=== PATIENT | male | born 1940 | race Caucasian/White ===

== ENCOUNTER 2016-09-18 20:54 | Emergency (ER) | payer MEDICARE ==
[~2016-09-18] VITALS: Ht 175.3 cm; Wt 67.3 kg
[~2016-09-18 20:54] MED LIST: AMLO-39 PO; CLOP75TA3 PO; CREST10T PO; MELO7.5T13 PO; METO-272 PO
[2016-09-18 21:14] VITALS: BP 105/55; PULSE 65; RESP 15; O2SAT 97
[2016-09-18] MEDS ORDERED: 0.9% Sodium Chloride 1,000 ML IV ONE (21:19)
--- NOTE | 2016-09-18 21:19 | ED.REPORT ---
HPI-Abd Pain M 40 and Over Date of Service Sep 18, 2016 ED Provider: Dr. Patel Pt is a 76 y/o male w/ a hx of prostate CA, HTN, hyperlipidemia, CVA, presenting to the ED via EMS due to GLF which occurred prior to arrival. The patient experienced several episodes of nausea, vomiting, and diarrhea several days ago with associated lightheadedness and diazines. Recent BMs have been normal. He was walking down the torres of his house when his feet became entangled with a rug that the dogs were not lying on. He fell backwards. It is hard to see if he struck his head. He did have a bout of emesis after falling. He does know that he struck his right posterior thoracic cage on a desk. He now has right posterior thoracic pain. Fell backwards with his right lower ribs onto a wooden desk. After his fall today, he began vomiting again. His fall is causing him some right posterior lower rib pain. He denies BURRELL, change in LOC, CP, syncope, SOB, abdominal pain, head injury, neck pain, fever, chills. Nursing Notes Stated Complaint: GLF,NAUSEA,VOMITING Chief Complaint: Male Abdominal Pain Nursing Notes Reviewed: Yes Allergies: Coded Allergies: No Known Allergies (Unverified Allergy, Unknown, 09/18/16) Scheduled AmLODIPine-Expunged Drug, Do Not Renew! (AmLODIPine-Expunged Drug, Do Not Renew! ) 5 Mg Tablet 5 MG PO DAILY Clopidogrel Bisulfate (Plavix) 75 Mg Tablet 75 MG PO DAILY Metoprolol Succinate ER (Metoprolol Succinate ER) 50 Mg Tab.er.24h 50 MG PO DAILY Rosuvastatin-Expunged Drug, Do Not Renew! (Crestor-Expunged Drug, Do Not Renew! ) 10 Mg Tablet 20 MG PO DAILY Scheduled PRN Meloxicam-Expunged Drug, Do Not Renew! (Mobic-Expunged Drug, Do Not Renew!) 7.5 Mg Tablet 7.5 MG PO BID PRN PRN For Pain General Time Seen by MD: 21:18 Chief Complaint Other (Fall) Hx Obtained From: Patient, EMS Arrived By: Ambulance Sudden in Onset?: Yes Onset Occurred: Just prior to arrival Symptom Duration: Since onset Progression since Onset: Unchanged Location: : Flank right Quality: Painful Severity: Current: Mild Severity: Maximum: Mild Past Medical History Past Medical History 1. Prostate cancer, Bates 7, T3b NX M0, stage III. a. Completed a course of definitive irradiation to the pelvis and prostate on April 28, 2007. b. On hormonal management. 2. Hypertension. 3. Hyperlipidemia. 4. Stroke - 5 years ago Past Surgical History Left hernia surgery Shoulder surgery Family History His father at age 86 due to heart disease. His mother at age 78 due to heart disease. Smoking History Unknown if Ever Smoker Social History The patient chews tobacco regularly Alcohol Use: Denies alcohol use Drug Use: Denies drug use Other Social History: Good social support, Local resident Ambulatory Status Independent Review of Systems Constitutional: Denies: Chills, Fever Respiratory: Denies: Non-productive cough, Shortness of breath Cardiovascular: Denies: Chest pain, Dyspnea on exertion, Syncope GI: Reports: Diarrhea, Nausea, Vomiting, Denies: Abdominal pain Musculoskeletal: Reports: Back pain, Denies: Neck pain Complete sys rev & neg: except as marked. Neurologic: Reports: Dizziness, Lightheaded, Denies: Change LOC, Headache, Syncope Physical Exam Initial Vital Signs Vital Signs (First) Date Time Temp Pulse Resp B/P Pulse Ox O2 Delivery O2 Flow Rate FiO2 09/18/16 21:14 37.0 65 15 105/55 97 Room Air Initial VS: Reviewed, Vital signs normal Head / Eyes: Atraumatic, Normocephalic, PERRL Neck: Supple, Full range of motion Extremities: Vascular intact, Neuro intact, No swelling, No tenderness Skin: Warm, Dry, No cyanosis Neurologic: Alert, Oriented, Nonfocal Psychiatric: Mood/affect normal, Behavior normal, Normal thought content Respiratory / Chest: Atraumatic, Breath sounds NL, Breath sounds = bilat, No respiratory distress, No rales, No rhonchi, No wheezing, No retractions, No stridor, No chest wall deformity, No crepitus Cardiovascular: Heart rate NL, Regular rhythm, Heart sounds NL, No gallop, No murmurs, No rubs, Cap refill not delayed, Peripheral circulation NL Abdomen: Atraumatic, Soft, Non-tender, No guarding, No rebound, No distention, No palpable mass Back: Full range of motion Right lower posterior ribs tender, ecchymotic, and swollen ENT: Atraumatic, Airway patent Mouth: Positive: Mucous membranes dry Interpretation & Diagnostics Lab Results Interpretation Result Diagram: 09/18/16211109/[id number]/162111 Test 09/18/16 21:12 09/18/16 21:40 09/18/16 23:30 09/18/16 23:58 White Blood Count 7.2th/mm3 (3.8-10.1) Red Blood Count 4.29mil/mm3 (4.40-5.80) Hemoglobin 12.5g/dL (13.8-17.2) Hematocrit 38.9% (41.0-50.0) Mean Corpuscular Volume 90.7fL (81-100) Mean Corpuscular Hemoglobin 29.1pg (27.0-35.0) Mean Corpuscular Hemoglobin Concent 32.1% (32.0-37.0) Red Cell Distribution Width 14.6% (12.3-15.4) Platelet Count 261bil/L (150-400) Neutrophils (%) (Auto) 67.8% (40-74) Lymphocytes (%) (Auto) 16.2% (14-46) Monocytes (%) (Auto) 11.0% (4-12) Eosinophils (%) (Auto) 3.7% (0-5) Basophils (%) (Auto) 0.6% (0-3) Hold Purple Top Tube Received (Received) Prothrombin Time 10.7sec (8.1-12.5) Prothromb Time International Ratio 1.00ratio Hold Blue Top Tube Received (Received) Sodium Level 134mEq/L (134-144) Potassium Level 4.4mEq/L (3.5-5.2) Chloride Level 96mEq/L (97-108) Carbon Dioxide Level 21mmol/L (18-29) Blood Urea Nitrogen 18mg/dL (8-27) Creatinine 1.01mg/dL (0.76-1.27) Estimat Glomerular Filtration Rate 76mL/min (>59) Glucose Level 197mg/dL (60-99) Calcium Level 9.0mg/dL (8.5-10.1) Magnesium Level 1.9mg/dL (1.6-2.6) Total Bilirubin 0.5mg/dL (0.0-1.2) Aspartate Amino Transf (AST/SGOT) 31U/L (0-50) Alanine Aminotransferase (ALT/SGPT) 24U/L (0-44) Alkaline Phosphatase 100U/L (25-160) Total Protein 7.6g/dL (6.4-8.4) Albumin 3.9g/dL (3.4-5.0) Lipase 36U/L (13-60) Hold Red Top Tube Received (Received) Hold [place] Top Tube Received (Received) Lactic Acid Level 0.9mmol/L (0.4-2.0) Urine Color Yellow (YELLOW) Urine Appearance Clear (CLEAR,HAZY) Urine pH 6.0 (5.0-8.0) Urine Specific [place] 1.020 (1.003-1.035) Urine Protein Negativemg/dL (NEG,TRACE) Urine Glucose (UA) Negativemg/dL (NEGATIVE) Urine Ketones Tracemg/dL (NEGATIVE) Urine Occult Blood Trace (NEGATIVE) Urine Nitrite Negative (NEGATIVE) Urine Bilirubin Negative (NEGATIVE) Urine Urobilinogen Normalmg/dL (NORMAL) Urine Leukocyte Esterase Negative (NEGATIVE) Urine RBC 0-2/hpf (0-2) Urine WBC 0-5/hpf (0-5) Urine Epithelial Cells Few/hpf (NONE-MOD) Urine Crystals None seen (NONE SEEN) Urine Bacteria Few/hpf (NONE-FEW) Urine Hyaline Casts 5/20/lpf (NONE) Urine Granular Casts None seen (NONE SEEN) Urine Waxy Casts None seen (NONE SEEN) Urine Red Blood Cell Casts None seen (NONE SEEN) Urine White Blood Cell Casts None seen (NONE SEEN) Urine Mucus Present (None Seen) Urine Trichomonas None seen (NONE SEEN) Urine Yeast None (NONE SEEN) Urinalysis Comment None Urine Culture Reflexed Not indicated Troponin T < 0.010ug/L (0.0-0.011) ECG Interpretation ECG Interpretation: Sinus rhythm rate 65 Borderline prolonged IA interval Time: 21:43 Interpreted by: ED physician Normal ECG Interpretation: No acute ischemic changes, No change from prior ECGs X-Ray Chest Interpretation View: Portable, 1 view Interpretation / Wet Read by: Wet read ED physician NL X-Ray Chest Findings: No infiltrate, No acute disease X-Ray Interpretation Study Performed: L spine Interpretation / Wet Read by: Wet read ED physician Interpretation: Normal exam, No fracture/dislocation Study Performed: T spine Interpretation / Wet Read by: Wet read ED physician Interpretation: Normal exam, No fracture/dislocation CT Head Interpretation Conclusion: Chronic ischemic changes. - Danish Cary MD Study: Head CT no contrast Interpretation / Wet Read by: Interpret - Radiologist Re-Eval/Medical Decision Med Decision/Clinical Course SC ruled out with serial troponins. History and physical are not consistent with SC either. This was a mechanical fall leading to chest contusion. Hard to say exactly why he vomited. Could be related pain or perhaps he did not strike his head. Either way's head CT was normal. Chest CT did not show pulmonary emboli dissection or pneumothorax. Serial troponins are negative. He looks and feels great. His labs are reassuring. He would like to go home. I find no indication for admission. There was no syncope or presyncope. There was no loss of consciousness. No chest symptoms whatsoever aside from the rib pain. He has obvious bruising of his posterior thorax. I will discharge him home with [place] take home pack. His family will administer one every 6 hours with routine follow-up opiate precautions. They will also start him on some MiraLAX to prevent constipation. Recommend follow-up next week. Yuan has done great. The CAT scan does show some rib fractures and dilated aorta. Otherwise no acute pathology. He has been here 6 hours and feels ready to go home. No vomiting, he does have rib pain of course but otherwise no other symptoms. Family is comfortable taking him home. He is hemodynamically stable. Time of Eval: 00:47 Re-Evaluation/Progress Note: Pt rechecked. Informed pt of plan for treatment. Pt understands and agrees with plan for treatment. F/U instructions and RTER warnings given. All questions addressed. Counseled Regarding: Diagnosis, Lab results, Need for follow-up, When/why to return to ED Discharge & Departure Primary Impression: Fall from ground level Additional Impressions: Vomiting Vomiting type: unspecified Vomiting Intractability: non-intractable Nausea presence: with nausea Qualified Code: R11.2 - Nausea with vomiting, unspecified Rib fracture Encounter type: initial encounter Rib fracture type: multiple ribs Fracture type: closed Laterality: right Qualified Code: S22.41XA - Multiple fractures of ribs, right side, initial encounter for closed fracture Disposition: Home Vital Signs - All Vital Signs Date Time Temp Pulse Resp B/P Pulse Ox O2 Delivery O2 Flow Rate FiO2 09/18/16 22:16 66 17 110/58 97 Room Air 09/18/16 21:14 37.0 65 15 105/55 97 Room Air )( All Prior VS Reviewed: Yes Condition: Stable Patient Instructions: Acute Nausea and Vomiting (ED), Rib Fracture (ED) Additional Instructions: Take one [place] every 6 hours as needed for severe pain. MiraLAX twice daily to prevent constipation from the [place]. Follow up with his primary care physician next week. Return if any problems or any worsening symptoms. Return if any further vomiting or any new chest symptoms whatsoever. The CT scan of his brain and chest were reassuring. He has rib fractures of the eighth and ninth ribs on the right. This may take 4-6 weeks to heal. Be cautious with the [place] as it can increase his risk of falling. This should be taken only when he can sit down. His aorta is also a little bit dilated. Discuss this with his primary care physician in follow-up. He may need a follow-up CAT scan or echocardiogram in about a year. Referrals: OTHER,PHYSICIAN (PCP) [facility] Scribe Attestation Portions of this note were transcribed by Carlos Alberto Ogden. I, Dr. Patel personally performed the history, physical exam and medical decision-making; I reviewed and confirmed the accuracy of the information in the transcribed note. Signed by Stephy Adame, 09/18/16 - 2144 Som Patel DO Sep 18, 2016 21:19 CARLOS ALBERTO OGDEN Sep 18, 2016 21:41
[2016-09-18] MEDS ORDERED: Ondansetron 2 mg/mL 2 mL Inj IVPUSH PRN (21:20)
[2016-09-18 21:27] LABS: BASOPHILS % (AUTO) 0.6 % (0-3); EOSINOPHILS % (AUTO) 3.7 % (0-5); Mean Corpuscular Hemoglobin 29.1 pg (27.0-35.0); Mean Corpuscular Volume 90.7 fL (81-100); NEUTROPHILS % (AUTO) 67.8 % (40-74); Platelet Count 261 bil/L (150-400)
[2016-09-18 21:41] LABS: Magnesium 1.9 mg/dL (1.6-2.6)
[2016-09-18 22:16] VITALS: BP 110/58; PULSE 66; RESP 17; O2SAT 97
[2016-09-18] MEDS ORDERED: _HYDROcodone/APAP 5-325 mg Tablet PO PRN (23:30)
[2016-09-18 23:48] LABS: APPEARANCE,URINE CLEAR (CLEAR,HAZY); COLOR,URINE YELLOW (YELLOW); OCCULT BLOOD,URINE TRACE (NEGATIVE); UROBILINOGEN,URINE NORMAL (NORMAL)
[2016-09-19 02:04] VITALS: BP 132/81; RESP 15; O2SAT 96
--- NOTE | 2016-09-19 07:34 | DRSVH ---
PROCEDURE: X-RAY CHEST ONE VIEW, PORTABLE ([id number]) INDICATIONS: cough TECHNIQUE: One view of the chest was acquired. COMPARISON: [facility], CT, CT ANGIO CHEST PE, 09/19/2016, 0:48. [facility], CR, CHEST 1VW (PORTABLE), 12/21/2014, 15:19. FINDINGS: Surgical changes and devices: Right shoulder arthroplasty. Lungs and pleura: No pleural effusions or pneumothorax. Lungs are clear. Mediastinum: Mediastinal contours appear normal. Heart size is normal. Bones and chest wall: No suspicious bony lesions. Overlying soft tissues appear unremarkable. IMPRESSION: No acute process. Dictated by: Oziel Miller M.D. on 09/19/2016 at 7:30 Approved by: Oziel Miller M.D. on 09/19/2016 at 7:32
--- NOTE | 2016-09-19 07:35 | DRSVH ---
PROCEDURE: X-RAY LUMBAR SPINE, 2 OR 3 VIEW INDICATIONS: fall, back pain TECHNIQUE: 3 views of the lumbar spine were acquired. COMPARISON: None. FINDINGS: Bones: 5 [id number] vertebrae are present. There is normal bony alignment. No vertebral body c ompression fractures. No suspicious bony lesions. Multilevel endplate osteophytes and facet hypertr ophy. Soft tissues: Overlying bowel gas pattern is normal. No suspicious soft tissue calcifications. IMPRESSION: Multiple degenerative disc and facet disease. No acute fracture. No osseous lesion. If cl inical suspicion and/or symptoms persist, further assessment with repeat plainfilms, or advanced imag ing (e.g., CT, MRI, or bone scan) may be helpful for further assessment. Dictated by: Oziel Miller M.D. on 09/19/2016 at 7:32 Approved by: Oziel Miller M.D. on 09/19/2016 at 7:33
--- NOTE | 2016-09-19 07:36 | DRSVH ---
PROCEDURE: X-RAY THORACIC SPINE, 3 VIEWS INDICATIONS: fall, back pain TECHNIQUE: 3 views of the thoracic spine were acquired. COMPARISON: None. FINDINGS: Bones: No fractures or dislocations. Moderate diffuse thoracic kyphosis. Multilevel endplate osteoph ytes. No suspicious bony lesions. Visualized ribs are intact. Soft tissues: No paravertebral stripe thickening. IMPRESSION: Multilevel degenerative disc disease. No acute fracture. No osseous lesion. If clinical s uspicion and/or symptoms persist, further assessment with repeat plainfilms, or advanced imaging (e.g ., CT, MRI, or bone scan) may be helpful for further assessment. Dictated by: Oziel Miller M.D. on 09/19/2016 at 7:34 Approved by: Oziel Miller M.D. on 09/19/2016 at 7:35
--- NOTE | 2016-09-19 07:47 | DRSVH ---
PROCEDURE: CT BRAIN WITHOUT CONTRAST ([id number]) INDICATIONS: fall, syncope, head injury, vomiting TECHNIQUE: Noncontrast 4.5 mm thick angled axial sections acquired from the foramen magnum to the vertex, with c oronal reformats. COMPARISON: [facility], MR, BRAIN W/O CONTRAST, 12/22/2014, 16:42. FINDINGS: Image quality: Excellent. CSF spaces: Basal cisterns are patent. No extra-axial fluid collections. The ventricles are symmet nisha in size and shape. Brain: No intracranial bleeds or masses. No change in chronic right jimenez radiata infarct. There i s cerebral volume loss for age, with resultant ventricular and sulcal prominence. There are perivent ricular and deep white matter chronic small vessel ischemic changes. There is intracranial internal carotid artery atherosclerosis. Skull and face: Calvarium and visualized facial bones appear intact, without suspicious lesions. Sinuses: There is mild mucosal thickening in the bilateral ethmoid and maxillary sinuses. Mastoids ar e clear. IMPRESSION: No acute intracranial abnormality. Dictated by: Oziel Miller M.D. on 09/19/2016 at 7:44 Approved by: Oziel Miller M.D. on 09/19/2016 at 7:46
--- NOTE | 2016-09-19 07:51 | DRSVH ---
PROCEDURE: CT ANGIO CHEST PULMONARY EMBOLISM ([id number]) INDICATIONS: near syncope, fall, chest wall trauma TECHNIQUE: After the administration of intravenous contrast, 2 mm thick sections acquired from the pulmonary api pj to the posterior costophrenic angles. 3-dimensional maximum intensity projection (MIP) coronal a nd sagittal reformats were then acquired through the thorax. For radiation dose reduction, the follo wing was used: automated exposure control, adjustment of mA and/or kV according to patient size. COMPARISON: [facility], CR, CHEST 1VW (PORTABLE), 05/26/2010, 17:23. [facility], CR, XR CHEST 1VW (PORTABLE), 09/18/2016, 22:31. FINDINGS: Image quality: Excellent. Pulmonary arteries: Pulmonary arteries are normal in size, and demonstrate no intraluminal filling d efects to suggest central pulmonary embolism. Lungs and pleura: Lungs are clear. No pleural effusions or pneumothorax. Central and peripheral ai rways are patent. Mediastinum: Heart size is normal, without pericardial effusion. There is calcification of the coron imelda vasculature. The No mediastinal or hilar adenopathy. Thoracic aorta is normal in caliber and enh ancement. Esophagus is normal in caliber, without hiatal hernia. Bones and chest wall: Right shoulder arthroplasty. 5 mm groundglass nodule within the right upper lo be inferolaterally adjacent to the minor fissure. No suspicious bony lesions. Mildly displaced right posterior eighth and ninth rib fractures. Thyroid gland is within normal limits as visualized. No ax illary or supraclavicular adenopathy. Abdomen: Visualized upper abdominal solid organs appear normal in the early arterial phase of enhanc ement. IMPRESSION: 1. No pulmonary embolus. No acute process. 2. Right posterior rib fractures. 3. Groundglass right upper lobe nodule; followup is recommended as below. Fleischner Society criteria for SUB-SOLID lung nodule followup. Solitary pure ground-glass nodules5 mm or lessNo followup needed. >5 mm3 mo follow-up CT to confirm persistence. Then annual CT for 3 years. Part-solid nodules3 mo follow-up CT to confirm persistence . If persistent with solid component <5 mm, annual CT for at least 3 years. If solid component is 5 mm or more, biopsy or surgical resection. Consider PET-CT for lesions > 10 mm. Dictated by: Oziel Miller M.D. on 09/19/2016 at 7:46 Approved by: Oziel Miller M.D. on 09/19/2016 at 7:49
== END 2016-09-19 02:01 | disposition home or self-care (01) ==
LOC: EDUNIT# 20:54 → SED 20:54 → EDBD 20:54 → SED 09-19 02:01
DX: S22.41XA Multiple fractures of ribs, right side, initial encounter for closed fracture (principal); W18.39XA Other fall on same level, initial encounter; Y93.01 Activity, walking, marching and hiking; Y92.019 Unspecified place in single-family (private) house as the place of occurrence of the external cause; Y99.8 Other external cause status; R11.2 Nausea with vomiting, unspecified; I10 Essential (primary) hypertension; E78.5 Hyperlipidemia, unspecified; Z86.73 Personal history of transient ischemic attack (TIA), and cerebral infarction without residual deficits; Z79.01 Long term (current) use of anticoagulants
CPT/HCPCS: 36415; 70450; 71010; 71275; 72072; 72100; 80053; 81000; 83605; 83690; 83735; 84484; 85025; 85610; 93005; 96361; 96374; 99285; J2405; J7030; Q9967

== ENCOUNTER 2017-02-28 21:55 | Emergency (ER) | payer MEDICARE ==
[~2017-02-28] VITALS: Ht 180.3 cm; Wt 68.2 kg
[~2017-02-28 21:55] MED LIST changes: -METO-272 PO; +METO-369 PO
[2017-02-28 22:23] VITALS: BP 127/53; PULSE 85; RESP 20; O2SAT 92
[2017-02-28 22:37] LABS: BASOPHILS % (AUTO) 0.4 % (0-3); EOSINOPHILS % (AUTO) 2.8 % (0-5); MONOCYTES % (AUTO) 5.4 % (4-12); Mean Corpuscular Volume 90.8 fL (81-100); NEUTROPHILS % (AUTO) 82.5 % (40-74); Platelet Count 299 bil/L (150-400)
[2017-02-28 23:03] LABS: TROPONIN T 0.01 ug/L (0.0-0.011)
[2017-02-28] MEDS ORDERED: ATOR20TA PO (23:11)
[2017-02-28] MEDS ORDERED: HYDR-4003 PO (23:11)
[2017-02-28] MEDS ORDERED: AMLO2.5T PO (23:11)
[2017-02-28] MEDS ORDERED: CLOP75TA28 PO (23:11)
[2017-02-28] MEDS ORDERED: TAMS0.4C98 PO (23:11)
[2017-02-28] MEDS ORDERED: ASPI-973 PO (23:11)
[2017-02-28] MEDS ORDERED: METO-369 PO (23:11)
[2017-02-28 23:12] LABS: APPEARANCE,URINE CLEAR (CLEAR,HAZY); COLOR,URINE YELLOW (YELLOW); OCCULT BLOOD,URINE SMALL (NEGATIVE); PH,URINE 5.5 (5.0-8.0); UROBILINOGEN,URINE NORMAL (NORMAL)
[2017-02-28] MEDS ORDERED: 0.9% Sodium Chloride 1,000 ML IV ONE (23:40)
[2017-02-28] MEDS ORDERED: Ondansetron 2 mg/mL 2 mL Inj IVPUSH ONE (23:40)
--- NOTE | 2017-02-28 23:47 | ED.REPORT ---
HPI-Syncope Date of Service Feb 28, 2017 ED Provider: Facundo Laguerre MD History of Present Illness: OCC Pt is a 76 year old male with a hx of prostate cancer, HTN, hyperlipidemia and stroke presenting to the ED via EMS after a syncopal episode just prior to arrival. He states that he felt nauseated so he got up and went to vomit in the bathroom, and on his way back he collapsed. The pt was actively retching just before the syncopal episode. When his son laid him down, the pt woke up right away. He reports not feeling very well yesterday, was belching today, has had a cough for the last week, slept almost the whole day today which was unusual, and has had a decreased appetite today. The pt recently had a flu shot this week and so he has been in and out of doctor's offices. Denies fever, chills, any pain, nausea currently, diarrhea, dysuria. Nursing Notes Stated Complaint: NEAR SYNCOPE Chief Complaint: General Complaint Nursing Notes Reviewed: Yes (Clinc!, Spiced Bits reconciled) Allergies: Coded Allergies: No Known Allergies (Unverified Allergy, Unknown, 09/18/16) Scheduled Amlodipine (Amlodipine) 2.5 Mg Tablet 2.5 MG PO DAILY Aspirin (Aspirin) 81 Mg Tablet 81 MG PO DAILY Atorvastatin (Lipitor) 20 Mg Tablet 20 MG PO DAILY Clopidogrel (Clopidogrel) 75 Mg Tablet 75 MG PO DAILY Metoprolol Succinate ER (Metoprolol Succinate ER) 50 Mg Tab.er.24h 50 MG PO DAILY Tamsulosin (Flomax) 0.4 Mg Capsule 0.4 MG PO DAILY Scheduled PRN Hydrocodone-Acetaminophen 5-325 mg (Hydrocodone-Acetaminophen 5-325 mg) 1 Each Tablet 1 TABLET PO q6 PRN PRN For Pain Ondansetron ODT (Ondansetron ODT) 8 Mg Tab.rapdis 8 MG PO Q4H PRN PRN For Nausea General Time Seen by Provider: 23:26 Chief Complaint Collapsed suddenly Hx Obtained From: Patient, Spouse, Son, Daughter Arrived By: Ambulance Onset Occurred: Just prior to arrival Symptom Duration: 1 - 15 minutes Severity: Current: No pain currently Severity: Maximum: No pain Recent Healthcare: No recent hospitalization, Recent doctor visit Similar Sx Previous: No Past Medical History Past Medical History 1. Prostate cancer, Kathleen 7, T3b NX M0, stage III. a. Completed a course of definitive irradiation to the pelvis and prostate on April 28, 2007. b. On hormonal management. 2. Hypertension. 3. Hyperlipidemia. 4. Stroke - 5 years ago Past Surgical History Left hernia surgery Shoulder surgery Family History His father at age 86 due to heart disease. His mother at age 78 due to heart disease. Smoking History Unknown if Ever Smoker Social History The patient chews tobacco regularly Alcohol Use: Denies alcohol use Drug Use: Denies drug use Other Social History: Good social support, Local resident Ambulatory Status Independent Review of Systems Decreased appetite Constitutional: Reports: Fatigue, Malaise, Denies: Chills, Fever Respiratory: Reports: Non-productive cough GI: Reports: Nausea, Vomiting, Denies: Diarrhea Neurologic: Reports: Syncope Complete sys rev & neg: except as marked. Additional Review of Systems Male: Denies Dysuria Physical Exam Initial Vital Signs Vital Signs (First) Date Time Temp Pulse Resp B/P Pulse Ox O2 Delivery O2 Flow Rate FiO2 02/28/17 22:23 37.3 85 20 127/53 92 Room Air Initial VS: Reviewed, Vital signs normal Head / Eyes: Atraumatic, Normocephalic, PERRL Neck: Supple, Non-tender, Full range of motion Abdomen / GI: Soft, Non-tender, No guarding, No rebound, No distention Upper Extremities: Vascular intact, Neuro intact, No swelling, No tenderness Skin: Warm, Dry, No cyanosis Psychiatric: Mood/affect normal, Behavior normal, Normal thought content General/Constitutional: Awake, Alert Distress / Hydration: Positive: Dehydration mild Mild dementia. Respiratory / Chest: Atraumatic, Breath sounds NL, Breath sounds = bilat, No respiratory distress Cough. Not tachypnic or dyspneic. Cardiovascular: Heart rate NL, Regular rhythm, Heart sounds NL, No murmurs, Cap refill not delayed, Peripheral circulation NL Lower Extremity / Pelvis / MS: Atraumatic, Inspection NL, Full range of motion , No deformity, Neurologic intact, Vascular intact Neurologic: Oriented X3, Speech NL, No motor deficits, No sensory deficits, CN II - XII intact, Reflexes equal bilat, Cerebellar NL ENT: Atraumatic, Airway patent Mouth: Positive: Mucous membranes dry Interpretation & Diagnostics Lab Results Interpretation Result Diagram: 02/28/17223402/28/172234 Test 02/28/17:35 02/28/17 23:00 White Blood Count 11.2th/mm3 (3.8-10.1) Red Blood Count 4.36mil/mm3 (4.40-5.80) Hemoglobin 13.1g/dL (13.8-17.2) Hematocrit 39.6% (41.0-50.0) Mean Corpuscular Volume 90.8fL (81-100) Mean Corpuscular Hemoglobin 30.0pg (27.0-35.0) Mean Corpuscular Hemoglobin Concent 33.1% (32.0-37.0) Red Cell Distribution Width 13.7% (12.3-15.4) Platelet Count 299bil/L (150-400) Neutrophils (%) (Auto) 82.5% (40-74) Lymphocytes (%) (Auto) 8.7% (14-46) Monocytes (%) (Auto) 5.4% (4-12) Eosinophils (%) (Auto) 2.8% (0-5) Basophils (%) (Auto) 0.4% (0-3) Sodium Level 138mEq/L (134-144) Potassium Level 3.7mEq/L (3.5-5.2) Chloride Level 97mEq/L (97-108) Carbon Dioxide Level 22mmol/L (18-29) Blood Urea Nitrogen 15mg/dL (8-27) Creatinine 0.86mg/dL (0.76-1.27) Estimat Glomerular Filtration Rate 92mL/min (>59) Glucose Level 137mg/dL (60-99) Calcium Level 9.2mg/dL (8.5-10.1) Total Bilirubin 1.0mg/dL (0.0-1.2) Aspartate Amino Transf (AST/SGOT) 29U/L (0-50) Alanine Aminotransferase (ALT/SGPT) 19U/L (0-44) Alkaline Phosphatase 97U/L (25-160) Troponin T 0.010ug/L (0.0-0.011) Pro-B-Type Natriuretic Peptide 442.3pg/mL (0-486) Total Protein 7.4g/dL (6.4-8.4) Albumin 3.9g/dL (3.4-5.0) Urine Color Yellow (YELLOW) Urine Appearance Clear (CLEAR,HAZY) Urine pH 5.5 (5.0-8.0) Urine Specific [place] 1.025 (1.003-1.035) Urine Protein Negativemg/dL (NEG,TRACE) Urine Glucose (UA) Negativemg/dL (NEGATIVE) Urine Ketones Negativemg/dL (NEGATIVE) Urine Occult Blood Small (NEGATIVE) Urine Nitrite Negative (NEGATIVE) Urine Bilirubin Negative (NEGATIVE) Urine Urobilinogen Normalmg/dL (NORMAL) Urine Leukocyte Esterase Negative (NEGATIVE) Urine RBC 0-2/hpf (0-2) Urine WBC 0-5/hpf (0-5) Urine Epithelial Cells Occasional/hpf (NONE-MOD) Urine Crystals None seen (NONE SEEN) Urine Bacteria Few/hpf (NONE-FEW) Urine Hyaline Casts Occasional/lpf (NONE) Urine Granular Casts None seen (NONE SEEN) Urine Waxy Casts None seen (NONE SEEN) Urine Red Blood Cell Casts None seen (NONE SEEN) Urine White Blood Cell Casts None seen (NONE SEEN) Urine Mucus Present (None Seen) Urine Trichomonas None seen (NONE SEEN) Urine Yeast None (NONE SEEN) Urinalysis Comment None Urine Culture Reflexed Not indicated Lab Results Interpretation: CBC nonspecific leukocytosis CMP normal troponin negative Urinary negative ECG Interpretation ECG Interpretation: Consistent with wandering atrial pacemaker. No acute ischemic changes. Multiple morhpologies to P wave and multiple WA intervals that resolved into a normal sinus rhythm. Time: 22:43 Interpreted by: ED physician Normal ECG Interpretation: Normal rate (97) X-Ray Chest Interpretation Chest Xray Interpretation: No clear acute pneumonia appreciated. No gross interval change compared with previous. View: Portable, 1 view Interpretation / Wet Read by: Wet read ED physician Re-Eval/Medical Decision Med Decision/Clinical Course This is a 76-year-old male brought with a chief complaint of syncope. The patient's had some fatigue over the past days, a cough over the past several days, and was coming back from going to the bathroom oriented several retching spells, started retching again and passed out. Actually vomit. The syncope was extraordinary brief, was caught by the family member did not suffer any injury, was brought for further evaluation. The patient has no complaints except for being tired and having a mild cough. He he denies abdominal pain or nausea at present. The patient has normal vitals. He does have a moderate cough, but lungs clear to oximetry levels are normal. Chest x-ray without lavon infiltrate. Blood work is unrevealing, urinalysis is negative. All in all suspect vasovagal episode of syncope secondary to patient's retching, family agrees. The URI seems most likely, no definite infiltrate or findings to indicate or necessitate antibiotics are indicated at this time. Patient comfortable with this as well. Routine return precautions reviewed. Patient's been discharged stable condition Source of Hx: Old records Re-Evaluation/Progress : Time of Eval: 00:23 Patient Status: Condition improved Re-Evaluation/Progress Note: Informed of lab and radiolody results. Discussed plan for discharge. Pt understands and agrees. Differential Diagnosis: Negative: Abdominal aortic aneurysm, Acute coronary syndrome, Anemia, Anxiety reaction, Cerebrovascular accident, Chest pain, acute , Electrolyte disorder, Head trauma, Hypoglycemia, Malingering, Pneumothorax, Prolonged QT syndrome, Sepsis Counseled Regarding: Diagnosis, Lab results, Need for follow-up, When/why to return to ED Discharge & Departure Impression: Primary Impression: Syncope Syncope type: vasovagal syncope Qualified Code: R55 - Syncope and collapse Additional Impressions: Upper respiratory infection URI type: unspecified URI Qualified Code: J06.9 - Acute upper respiratory infection, unspecified Nausea Disposition: Home Discharge Condition All VS Reviewed: Yes Condition: Improved Additional Instructions: 1. I suspect the passing out ("syncope") was "vaso-vagal in nature" and related to the retching. (A common, benign cause) 2. His symptoms and exam suggest a viral respiratory infection - his bloodwork and urine is normal and I did not appreciate a pneumonia or markers of a bacterial infection that would benefit from antibiotics. 3. Encourage fluids 4. Rest 5. IF needed for nausea take ondansetron 8mg (let dissolve under tongue) up to every 4 hours as needed. 6. Return if new, worsening, or uncontrolled symptoms occur. Referrals: GAYATHRI GUEVARA (PCP) Scribe Attestation Portions of this note were transcribed by Angelina Perez. I, Dr. Laguerre, personally performed the history, physical exam and medical decision-making; I reviewed and confirmed the accuracy of the information in the transcribed note. Signed by: Angelina Perez, 03/01/17. copies to: GAYATHRI GUEVARA Matthew F MD Feb 28, 2017 23:47 ANGELINA PEREZ Feb 28, 2017 23:52
[2017-03-01] MEDS ORDERED: ONDA8TAB10 PO (00:32)
[2017-03-01] MEDS ORDERED: _Ondansetron ODT 4 mg Tablet PO PRN (00:35)
[2017-03-01 01:13] VITALS: BP 149/67; PULSE 84; RESP 20; O2SAT 98
--- NOTE | 2017-03-01 10:18 | DRSVH ---
PROCEDURE: X-RAY CHEST ONE VIEW, PORTABLE ([id number]) INDICATIONS: Cough, syncope TECHNIQUE: One view of the chest was acquired. COMPARISON: [facility], CR, XR CHEST 1VW (PORTABLE), 09/18/2016, 22:31. FINDINGS: Surgical changes and devices: Partially visualized right shoulder arthroplasty Lungs and pleura: No pleural effusions or pneumothorax. Lungs are clear. Mild scarring/atelectasis Mediastinum: Mediastinal contours appear normal. Heart size is normal. Bones and chest wall: No suspicious bony lesions. Overlying soft tissues appear unremarkable. IMPRESSION: No acute disease Dictated by: Des Rios M.D. on 03/01/2017 at 9:15 Approved by: Des Rios M.D. on 03/01/2017 at 9:17
--- NOTE | 2017-03-01 10:22 | DRSVH ---
PROCEDURE: X-RAY CHEST ONE VIEW, PORTABLE ([id number]) INDICATIONS: COUGH, SYNCOPE TECHNIQUE: One view of the chest was acquired. COMPARISON: [facility], CR, XR CHEST 1VW (PORTABLE), 02/28/2017, 22:43. FINDINGS: Surgical changes and devices: Partially visualized right shoulder arthroplasty. Lungs and pleura: No pleural effusions or pneumothorax. Lungs are clear. Mediastinum: Mediastinal contours appear normal. Heart size is normal. Bones and chest wall: No suspicious bony lesions. Overlying soft tissues appear unremarkable. IMPRESSION: No acute disease Dictated by: Des Rios M.D. on 03/01/2017 at 9:19 Approved by: Des Rios M.D. on 03/01/2017 at 9:20
== END 2017-03-01 02:04 | disposition home or self-care (01) ==
LOC: SED 21:55 → EDBD 21:55 → EDUNIT# 21:55 → SED 03-01 02:04
DX: J06.9 Acute upper respiratory infection, unspecified (principal); R55 Syncope and collapse; R11.0 Nausea; I10 Essential (primary) hypertension; E78.5 Hyperlipidemia, unspecified; Z85.46 Personal history of malignant neoplasm of prostate; Z86.73 Personal history of transient ischemic attack (TIA), and cerebral infarction without residual deficits; Z79.82 Long term (current) use of aspirin
CPT/HCPCS: 36415; 71010; 80053; 81000; 83880; 84484; 85025; 93005; 96374; 99285; J2405; J7030